=== PATIENT | male | born 1960 | race Caucasian/White ===

== ENCOUNTER 2016-08-02 17:46 | Emergency (ER) | payer BC, MEDICARE ==
[~2016-08-02] VITALS: Ht 182.9 cm; Wt 104.3 kg
[~2016-08-02 17:46] MED LIST: ASPI-496 PO; LISI-465 PO; METF500T4 PO; OXYC20TA42 PO; OXYCODONE PO
[2016-08-02] MEDS ORDERED: SODIUM CHLORIDE FLUSH 10ML SYR IVF ONE (18:00)
[2016-08-02] MEDS ORDERED: MORPHINE SULFATE 4 MG/ML, 1ML IVPush PRN (18:00)
[2016-08-02] MEDS ORDERED: ONDANSETRON 2MG/ML, 2ML IVPush ONE (18:00)
[2016-08-02] MEDS ORDERED: ASPIRIN 81 MG TABLET CHEW PO ONE (18:00)
[2016-08-02] MEDS ORDERED: ASPIRIN 81 MG TABLET CHEW ONE (18:08)
[2016-08-02] MEDS ORDERED: MORPHINE SULFATE 4 MG/ML, 1ML ONE (18:08)
[2016-08-02] MEDS ORDERED: ONDANSETRON 2MG/ML, 2ML ONE (18:09)
[2016-08-02] MEDS ORDERED: FAMOTIDINE 20 MG/2 ML ONE (18:30)
[2016-08-02] MEDS ORDERED: FAMOTIDINE 20 MG/2 ML IVP ONE (18:30)
[2016-08-02 18:34] LABS: HEMOGLOBIN 16.8 g/dL (13.7-18.0)
[2016-08-02 18:45] LABS: ASPARTATE AMINO TRANSFERASE 16 U/L (15-37); BLOOD UREA NITROGEN 9 mg/dL (7-18)
[2016-08-02 18:51] LABS: IS PT STATUS REG ER OR PRE ER? YES
[2016-08-02 20:49] VITALS: BP 122/83
== END 2016-08-02 20:52 | disposition home or self-care (01) ==
LOC: ED 19:50
DX: K26.9 Duodenal ulcer, unspecified as acute or chronic, without hemorrhage or perforation (principal); M47.896 Other spondylosis, lumbar region; F12.10 Cannabis abuse, uncomplicated
CPT/HCPCS: 36415; 74022; 76700; 80053; 83690; 84484; 85025; 93005; 96374; 96375; 99285; J2405; S0028

== ENCOUNTER 2016-08-06 16:00 | Emergency (ER) | payer BC, MEDICARE ==
[~2016-08-06] VITALS: Ht 182.9 cm; Wt 107.5 kg
[2016-08-06 16:10] VITALS: BP 147/105
[2016-08-06] MEDS ORDERED: BACL-19 PO (16:46)
[2016-08-06] MEDS ORDERED: OMEP20TA62 PO (16:46)
[2016-08-06] MEDS ORDERED: OXYC-229 PO (16:46)
== END 2016-08-06 16:44 | disposition home or self-care (01) ==
LOC: ED 16:38
DX: Z76.0 Encounter for issue of repeat prescription (principal); M54.5 Low back pain; M54.6 Pain in thoracic spine; G89.29 Other chronic pain
CPT/HCPCS: 99283

== ENCOUNTER 2016-08-15 10:53 | Emergency (ER) | payer BC, MEDICARE ==
[~2016-08-15] VITALS: Ht 182.9 cm; Wt 104.7 kg
[~2016-08-15 10:53] MED LIST changes: +BACL-19 PO; +OMEP20TA62 PO; +OXYC-229 PO
[2016-08-15 11:04] VITALS: BP 130/84
[2016-08-15] MEDS ORDERED: DIAZEPAM 5 MG TABLET ONE (11:48)
[2016-08-15] MEDS ORDERED: ONDANSETRON ODT 4 MG ONE (11:48)
[2016-08-15] MEDS ORDERED: HYDROmorphone 1 MG/ML, 1ML ONE (11:48)
[2016-08-15] MEDS ORDERED: KETOROLAC 30 MG/1 ML ONE (11:48)
[2016-08-15] MEDS ORDERED: KETOROLAC 30 MG/1 ML IM ONE (12:00)
[2016-08-15] MEDS ORDERED: DIAZEPAM 5 MG TABLET PO ONE (12:00)
[2016-08-15] MEDS ORDERED: ONDANSETRON ODT 4 MG PO ONE (12:00)
[2016-08-15] MEDS ORDERED: HYDROmorphone 1 MG/ML, 1ML IM ONE (12:00)
== END 2016-08-15 12:35 | disposition home or self-care (01) ==
LOC: ED 12:25
DX: M54.5 Low back pain (principal); F11.90 Opioid use, unspecified, uncomplicated
CPT/HCPCS: 96372; 99284; J1170; J1885; Q0162

== ENCOUNTER 2018-10-21 05:57 | Emergency (ER) | payer BC, MEDICARE ==
[~2018-10-21] VITALS: Ht 182.9 cm; Wt 102.5 kg
[~2018-10-21 05:57] MED LIST changes: +METF500T17 PO; -METF500T4 PO; -OXYC-229 PO; +OXYC-307 PO
[2018-10-21 06:00] VITALS: BP 158/96
[2018-10-21] MEDS ORDERED: HYDROmorphone 1 MG/ML, 1ML INJ IM ONE (06:30)
[2018-10-21] MEDS ORDERED: METHOCARBAMOL 750 MG TABLET PO ONE (06:30)
[2018-10-21] MEDS ORDERED: METHOCARBAMOL 750 MG TABLET ONE (06:34)
[2018-10-21] MEDS ORDERED: HYDROmorphone 1 MG/ML, 1ML VIAL ONE (06:34)
--- NOTE | 2018-10-21 07:11 | NUR ---
RECEIVED REPORT FROM WENCESLAO, PLAN OF CARE DISCUSSED. PT STATES HE IS STILL IN PAIN, NOTIFIED MD. AWAITING CT EXAM
--- NOTE | 2018-10-21 08:12 | NUR ---
SOFT COLLAR APPLIED. PT TOLERATED WELL
--- NOTE | 2018-10-21 08:46 | NUR ---
Report from PENG Morris.
--- NOTE | 2018-10-21 08:53 | NUR ---
Patient/Caregiver given discharge instructions and they have confirmed that they understand the instructions. Patient ambulatory with steady gait.
== END 2018-10-21 08:54 | disposition home or self-care (01) ==
LOC: ED 06:59
DX: S16.1XXA Strain of muscle, fascia and tendon at neck level, initial encounter (principal); I10 Essential (primary) hypertension; M62.838 Other muscle spasm; X58.XXXA Exposure to other specified factors, initial encounter; Y93.89 Activity, other specified; Y92.89 Other specified places as the place of occurrence of the external cause; Y99.8 Other external cause status
CPT/HCPCS: 72125; 96372; 99284; J1170

== ENCOUNTER → 2020-02-13 | Outpatient (CLI) | payer BC, MEDICARE | END | disposition home or self-care (01) | LOC: RAD 09:01 | PROVIDERS: ATTEND Nurse Practitioner | DX: R63.4 Abnormal weight loss (principal) | CPT/HCPCS: 71046 ==